=== PATIENT | female | born 1985 | race Caucasian/White ===

== ENCOUNTER → 2017-01-24 | Outpatient (CLI) | payer OTHER ==
[~2017-01-24] MED LIST: BCPILLS PO; NPR500 PO
== END | disposition home or self-care (01) ==
LOC: C.PAPS 14:21
PROVIDERS: ATTEND Physician Assistant
DX: Z12.4 Encounter for screening for malignant neoplasm of cervix (principal); R87.610 Atypical squamous cells of undetermined significance on cytologic smear of cervix (ASC-US)

== ENCOUNTER 2018-01-23 15:44 | Outpatient (CLI) | payer OTHER ==
[~2018-01-23] VITALS: Ht 170.2 cm; Wt 90.5 kg
[2018-01-23 17:01] LABS: HEMATOCRIT 35.2 % (37-47); HEMOGLOBIN 12.3 g/dL (12.0-16.0); MEAN CELL VOLUME 88.7 fL (80-100); MEAN CORPUSCULAR HGB CONC 34.9 g/dl (32-36); MEAN PLATELET VOLUME 10.4 fL (7.4-10.4); PLATELET COUNT 199 K/uL (130-400); RED CELL DISTRIBUTION WIDTH CV 12.7 % (11.5-14.5); RED CELL DISTRIBUTION WIDTH SD 40.7 fL (36.4-46.3); WHITE BLOOD COUNT 8.97 K/uL (4.8-10.8)
[2018-01-23 17:22] LABS: ALT/SGPT 17 U/L (12-78); AST/SGOT 17 U/L (15-37)
[2018-01-23 18:02] VITALS: Ht 170.2 cm; Wt 90.5 kg
[2018-01-23] MEDS ORDERED: PREN-83 ×2 (18:26)
[2018-01-23] MEDS ORDERED: DOXY25TA8 ×2 (18:26)
[2018-01-23] MEDS ORDERED: PYRI100T4 PO ×2 (18:26)
[2018-01-23] MEDS ORDERED: CLR10 PO ×2 (18:26)
--- NOTE | 2018-01-23 19:28 | Progress Note ---
Progress Note Date of Service Jan 23, 2018. Progress Note Outpatient note 32 F P0000 at 40.2 weeks seen in L&D for elevated BP in office today. BP 120/ 87 urine dip negative and labs all normal. Will discharge home. Induction of labor next week. T Cat 1.
== END 2018-01-23 17:55 | disposition home or self-care (01) ==
LOC: C.LD 15:44 → C.OPB 15:44
PROVIDERS: ATTEND Obstetrics & Gynecology
DX: O99.89 Other specified diseases and conditions complicating pregnancy, childbirth and the puerperium (principal); R03.0 Elevated blood-pressure reading, without diagnosis of hypertension; Z3A.40 40 weeks gestation of pregnancy

== ENCOUNTER 2018-01-25 02:38 | Inpatient (IN) | payer OTHER ==
[~2018-01-25] VITALS: Ht 170.2 cm; Wt 87.3 kg
[~2018-01-25 02:38] MED LIST changes: +CLR10 PO; +DOXY25TA8; +PREN-83; +PYRI100T4 PO
[2018-01-25] MEDS ORDERED: FAMO20TA11 PO ×2 (03:04)
[2018-01-25 03:05] VITALS: Ht 170.2 cm; Wt 87.3 kg
[2018-01-25] MEDS ORDERED: LACTATED RINGER'S 1000ML 1,000 ML IV SCH (03:09)
[2018-01-25] MEDS ORDERED: VANCOMYCIN CONSULT ACTIVE PRN (03:15)
[2018-01-25] MEDS ORDERED: VANCOMYCIN IV 1,000 MG in SODIUM CHLORIDE 0.9% 250ML 250 ML IV ONE (03:15)
[2018-01-25] MEDS ORDERED: VANCOMYCIN IV 1,000 MG in SODIUM CHLORIDE 0.9% 250ML 250 ML IV PRN (03:30)
[2018-01-25 04:02] LABS: HEMATOCRIT 33.9 % (37-47); HEMOGLOBIN 12.1 g/dL (12.0-16.0); MEAN CELL VOLUME 89.4 fL (80-100); MEAN CORPUSCULAR HEMOGLOBIN 31.9 pg (25-34); MEAN CORPUSCULAR HGB CONC 35.7 g/dl (32-36); MEAN PLATELET VOLUME 10.6 fL (7.4-10.4); PLATELET COUNT 197 K/uL (130-400); RED CELL DISTRIBUTION WIDTH CV 12.7 % (11.5-14.5); RED CELL DISTRIBUTION WIDTH SD 40.9 fL (36.4-46.3); WHITE BLOOD COUNT 8.43 K/uL (4.8-10.8)
[2018-01-25] MEDS ORDERED: CEFAZOLIN IV 2,000 MG in DEXTROSE 5% 50ML 50 ML IV ONE (04:15)
[2018-01-25 04:25] LABS: ALBUMIN 2.4 gm/dl (3.4-5.0); CALCIUM 8.5 mg/dl (8.5-10.1); CREATININE 0.76 mg/dl (0.60-1.20); POTASSIUM 3.3 mmol/L (3.5-5.1)
[2018-01-25 04:27] LABS: TOTAL PROTEIN 6.1 gm/dl (6.4-8.2)
[2018-01-25] MEDS ORDERED: CEFAZOLIN IV 2,000 MG in SYRINGE 0 ML IV SCH (04:30)
[2018-01-25] MEDS ORDERED: OXYTOCIN 30 UNITS/500ML NSS IV PRN ×2 (09:00→20:45)
[2018-01-25] MEDS ORDERED: LACTATED RINGER'S 1000ML 500 ML IV PRN ×2 (09:15→14:52)
[2018-01-25] MEDS ORDERED: CEFAZOLIN IV 1,000 MG in SYRINGE 0 ML IV PRN (10:00)
[2018-01-25] MEDS ORDERED: BUPIVACAINE 0.25% 30 ML VIAL ONE (14:03)
[2018-01-25] MEDS ORDERED: EpHEDrine SULFATE INJ 50 MG/ML AMP ONE (14:03)
[2018-01-25] MEDS ORDERED: FENTANYL 2MCG/ML ROPIV 1.25MG/ML 100ML BAG EPI ONE (14:04)
[2018-01-25] MEDS ORDERED: FENTANYL CITRATE INJ 50 MCG/1 ML 2 ML VIAL ONE (14:04)
[2018-01-25] MEDS ORDERED: NALOXONE HCL INJ 1 MG in SODIUM CHLORIDE 0.9% 1000ML 1,000 ML IV PRN (14:52)
[2018-01-25] MEDS ORDERED: FENTANYL 2MCG/ML ROPIV 1.25MG/ML 100ML BAG EPI PRN (15:00)
[2018-01-25] MEDS ORDERED: ONDANSETRON INJ 2 MG/ML 2 ML VIAL IV PRN (15:00)
[2018-01-25] MEDS ORDERED: NALOXONE HCL 0.4 MG/1 ML VIAL/CARP IV PRN (15:00)
[2018-01-25] MEDS ORDERED: DiphenhydrAMINE HCL 50 MG/ML VIAL IV PRN (15:00)
[2018-01-25] MEDS ORDERED: EpHEDrine SULFATE INJ 50 MG/ML AMP IV PRN (15:00)
[2018-01-25] MEDS ORDERED: NALBUPHINE HCL INJ 10 MG/ML AMP IV PRN (15:00)
--- NOTE | 2018-01-25 19:37 | HISTORY & PHYSICAL EXAMINATION ---
DATE OF ADMISSION: 01/25/2018 HISTORY OF PRESENT ILLNESS: The patient is a 32-year-old G1, P0, due date 01/21/2018, making her 40 weeks and 4 days on 01/25/2018. The patient presented to labor and delivery with term premature rupture of membranes at 1:00 a.m. on 01/25/2018. On arrival to labor and delivery, she was grossly ruptured. heart was category 1. Pelvic exam showed she was 1 cm, 70% and -1. The patient was, therefore, admitted. COURSE: Has been unremarkable. LABORATORY DATA: Blood type is O positive, antibody negative, rubella immune, GBS negative. PAST MEDICAL HISTORY: Seasonal allergies. PAST SURGICAL HISTORY: The patient has had throat surgery as well as dental surgery. FAMILY HISTORY: Noncontributory. SOCIAL HISTORY: The patient denies tobacco, drug or alcohol use. ALLERGIES: THE PATIENT IS ALLERGIC TO AMOXICILLIN AND PENICILLIN G. PHYSICAL EXAMINATION: GENERAL: Well-developed, well-nourished white female in no acute distress. HEART: S1, S2, regular rhythm and rate. LUNGS: Clear to auscultation bilaterally. ABDOMEN: Gravid. EXTREMITIES: No cyanosis, clubbing or edema. PELVIC: 1 cm, 70% and -1 station. ASSESSMENT AND PLAN: A 32-year-old G1, P0, at 40 and 4, term premature rupture of membranes. The patient is, therefore, being admitted. The patient is positive group B strep. She is, therefore, being given antibiotic prophylaxis. THE PATIENT HAS ALLERGY TO PENICILLIN, GETS A RASH. We discussed the use of Ancef. We discussed 4-10% cross reactivity. The patient has agreed to Ancef.
[2018-01-25] MEDS ORDERED: DIPHTHERIA/TETANUS/PERTUSSIS 0.5 ML SYR/VIAL IM. ONE (20:45)
[2018-01-25] MEDS ORDERED: LANOLIN OINT EXT PRN (20:45)
[2018-01-25] MEDS ORDERED: BENZOCAINE 20% AER SPR 82.5 GM CAN EXT PRN (20:45)
[2018-01-25] MEDS ORDERED: SUPERCREAM 0.870 % 15GM JAR EXT PRN (20:45)
[2018-01-25] MEDS ORDERED: OXYCODONE/ACETAMINOPHEN 5-325 TAB PO PRN (20:45)
[2018-01-25] MEDS ORDERED: ACETAMINOPHEN/CODEINE 300/30MG TAB PO PRN ×2 (20:45)
[2018-01-25] MEDS ORDERED: MISOPROSTOL 200 MCG TAB PR ONE (20:52)
--- NOTE | 2018-01-25 21:01 | DELIVERY SUMMARY ---
DATE OF OPERATION: 01/25/2018 The patient delivered a live infant female in left occiput anterior presentation. There was no nuchal cord. Infant was delivered and cord clamped after 1 minute. Cord blood, cord gas and cord collection was performed as per the patient's request. The 's weight is pending. Apgars 8 and 9. Placenta spontaneously delivered. Inspection of the placenta shows 3-vessel cord, grossly normal placenta. Inspection of the perineum showed a second-degree midline laceration which was repaired with 2-0 Vicryl in layers. Post-repair exam showed good sphincter tone, no sutures were palpated in the rectum. ESTIMATED BLOOD LOSS: 500 mL Baby and mother are doing well in recovery. All instruments were removed from the vagina including laps, sponges and needles and accounted for x2. I attest to the content of the Intraoperative Record and any orders documented therein. Any exception s are noted below.
--- NOTE | 2018-01-25 22:07 | Anesthesia Procedure Note ---
Anesthesia Epidural Removal Nt Date & Time Jan 25, 2018 at 22:07 Vital Signs Pain Intensity: 1.0 Notes Mental Status: alert / awake / arousable, participated in evaluation Nausea / Vomiting: adequately controlled Pain: adequately controlled Airway Patency, RR, SpO2: stable & adequate BP & HR: stable & adequate Hydration State: stable & adequate Neuraxial Anesthesia: was administered Anesthetic Complications: no major complications apparent, pt satisfied with anesthetic care Epidural: removed without complications, with tip intact
[2018-01-25] MEDS: IBUPROFEN 600 MG TAB PO PRN (23:06)
[2018-01-26] VITALS (9 sets, daily range): BP systolic 127–159; BP diastolic 76–94; PULSE 61–69; TEMP 36.5–37.1; O2SAT 95–96
[2018-01-26] MEDS: IBUPROFEN 600 MG TAB PO PRN ×4 (02:59→19:15)
[2018-01-26] MEDS: ACETAMINOPHEN 325 MG TAB PO PRN ×4 (06:15→23:42)
[2018-01-26 06:28] LABS: HEMATOCRIT 31.5 % (37-47); HEMOGLOBIN 11.2 g/dL (12.0-16.0)
[2018-01-26] MEDS: PRENATAL VITAMIN TAB PO SCH (08:21)
[2018-01-26] MEDS: DOCUSATE SODIUM 100 MG CAP PO SCH ×2 (08:22→20:10)
[2018-01-26] MEDS: FERROUS SULFATE 325 MG TAB PO SCH (08:22)
--- NOTE | 2018-01-26 12:45 | OB/GYN Progress Note ---
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 Subjective conversation w/ patient, physical exam Voiding: no voiding problems Passing Gas: Yes Lochia: Small Feeding Type: Breast Feeding Objective Vital Signs Date Time Temp Pulse Resp B/P (MAP) Pulse Ox O2 Delivery O2 Flow Rate FiO2 01/26/18 11:50 36.6 65 18 152/92 (112) 95 Room Air 01/26/18 08:15 37.0 65 18 142/92 (109) 96 Room Air 01/26/18 08:15 96 Room Air 01/26/18 04:00 37.1 66 20 136/84 01/26/18 00:45 37.1 68 18 132/83 01/26/18 00:45 Room Air Physical Exam General Appearance: WELL-APPEARING, WD/WN, NO APPARENT DISTRESS Abdomen: non tender, soft Fundus: Firm Extremities: non-tender, normal inspection, no pedal edema, no calf tenderness Laboratory Results Last 24 Hours Test 01/26/18 06:12 Hemoglobin 11.2 g/dL Hematocrit 31.5 % Assessment and Plan Post- Day Number: 1 Continue Routine Care: Will watch BP tent d/c in AM
[2018-01-26] MEDS ORDERED: NURSING VERBAL MED ORDER ONE (14:30)
[2018-01-26] MEDS: LABETALOL HCL 100 MG TAB PO SCH ×2 (15:19→20:10)
[2018-01-26] MEDS ORDERED: BISACODYL 5 MG TABEC PO SCH (20:00)
[2018-01-27] MEDS: IBUPROFEN 600 MG TAB PO PRN (03:02)
[2018-01-27 03:03] VITALS: BP 133/81; PULSE 55
[2018-01-27] MEDS: ACETAMINOPHEN 325 MG TAB PO PRN (05:17)
[2018-01-27] MEDS ORDERED: BISACODYL 10 MG SUPP PR PRN (07:00)
[2018-01-27] MEDS ORDERED: LBT100 PO ×2 (07:43)
[2018-01-27] MEDS ORDERED: MTR600X PO ×2 (07:43)
--- NOTE | 2018-01-27 07:45 | Discharge Instructions ---
Discharge Instructions Date of Service Jan 27, 2018. Admission Reason for Admission: LABOR Discharge Discharge Diagnosis / Problem: Vaginal Delviery, Elevated BP's Discharge Goals Goal(s): Routine recovery after delivery Medications Continue Dispensed Medications: supercream, dermaplast, tucks, lansinoh Activity Recommendations Activity Limitations: per Instructions/Follow-up section . Instructions / Follow-Up Instructions / Follow-Up ACTIVITY RECOMMENDATIONS: * Gradual return to full activity over the next 2-3 weeks. * No lifting - nothing heavier than baby over the next 2-3 weeks. * Do not engage in vigorous exercise, sexual activity or sports until cleared by your physician. * Do not drive or operate any motorized equipment until cleared by your physician. * You may shower/bathe daily. BREAST CARE: If you are not breast feeding: * Wear a supportive bra 24 hours a day for one to two weeks. * Avoid stimulating your breasts and nipples as much as possible during the first few weeks after delivery. * When taking a shower, have the warm water hit your back, not breasts. * When your breasts feel full, apply ice packs. Usually three to four times a day helps ease the discomfort. * Take a mild pain medication (Tylenol/Motrin) when you are uncomfortable. If breast feeding: * Use breast milk to lubricate nipples. Lansinoh cream may be used for sore nipples. You do not need to remove cream prior to breast feeding. If using a different brand of cream, check the label for directions regarding removal of cream prior to nursing. * Wear a supportive bra. * If having problems with breasts or breast feeding, call a reporting consultant or your health care provider. EPISIOTOMY CARE: After delivery, if you have an episiotomy (stitches), the following steps will ease discomfort and aid healing. * For the first 24 hours after delivery, place ice packs next to your episiotomy to help reduce swelling. * After the first 24 hour-period, sitz baths, either portable or in the tub, are suggested. A shower with a shower arm sprayed over the episiotomy may be comforting. * Franny care should be done after each voiding and bowel movement. Squirt warm water from a plastic bottle over the perineum (region of the body between the anus and urinary opening) and pat dry. * Use Dermoplast to ease discomfort. Shake container. Russell directly over the episiotomy. * Place a Tucks on a clean sanitary pad next to your episiotomy. OVER THE COUNTER MEDICATION: * For discomfort or pain, you may use Acetaminophen (Tylenol), Ibuprofen (Advil ), or Naproxen (Aleve) following the package directions. * For constipation you may use Colace following the package directions. SPECIAL CARE INSTRUCTIONS: When you are discharged from the hospital, it is important for you to follow the instructions listed below: * During the first week at home, you should be able to care for yourself and your baby. In addition, the usual light household activities are encouraged. * Limit your activities to the way you feel. Do not try to clean the house or move furniture. Be sensible. * If you actively engage in sports and have done so up until the time of your delivery, you may resume these activities as soon as you feel able. This may take up to one month or even longer. Use good judgment. * Continue to take your vitamins for at least six weeks after the of your baby. * Your diet need not be limited unless you were on a special diet before your delivery. Breast-feeding mothers need around 2500 calories per day and at least 64-80 ounces of fluid per day (8 to 10 glasses). * You should eat foods from the four major food groups. Crash diets or fad diets are to be avoided. Eating lean meats, fresh fruits and vegetables, low-fat dairy products, high fiber foods and a regular exercise program, will help you get back to your pre- weight without putting your health at risk. * Constipation is sometimes a problem after delivery. Take a mild laxative as needed. If breast feeding, Milk of Magnesia is acceptable to use. You may use a suppository or Fleets enema if no episiotomy. * A daily shower or tub bath is suggested. Be sure to thoroughly and gently dry the perineum. * A bloody vaginal discharge will usually continue until around four weeks post . A small amount of bleeding may continue for as long as six weeks. Vaginal discharge changes from the bright red bleeding after delivery to pink then brownish and finally yellowish-pink before becoming white and disappearing. * Bleeding may increase with activity. Your first period may come in 4-8 weeks. If you are breast feeding, your period may be delayed even longer. * [place] (sex) can begin whenever both you and your partner feel comfortable and do not have any form of genital infection. It is recommended that you wait until after your return appointment and discuss with your physician. If you have questions, please talk to your health care practitioner. A condom should be used to prevent infection and . * Foreplay, gentle intercourse and lubrication is very important the first several times to prevent pain. A water-based lubricant such as K-Y jelly or Astroglide may be used. * Tampons may be used six weeks after delivery. * Douching should be avoided for 6 weeks after delivery. * If you have RH negative blood and your baby is RH positive, you will receive RHOGAM by injection prior to discharge. The nurse will give you a card to keep with you that has the date and place that you received RHOGAM after delivery. * During your care, you had a Rubella screen done to check for the presence of rubella antibodies in your blood. If your test was negative, you will receive a Rubella vaccine prior to discharge. This vaccine may cause a fever, soreness at the injection site and flu-like symptoms. If these symptoms persist, notify your health care practitioner. is not advised for three months after a Rubella vaccine. There is a higher chance of having a baby with defects if conceived within three months of getting the vaccine. * If you were discharged 24 hours from delivery or before 48 hours: Visiting nurses will come to your home 48 hours after discharge to assess you and your baby. The visiting nurse will meet with you while you are in the hospital to arrange a time and get directions to your home. * Verbalizes understanding of car seat law as reviewed with patient nursing. * Car Seat hand-out given and reviewed with patient by nursing. * Shaken baby information reviewed with patient by nursing. Call you doctor if: * Heavy bleeding (saturating several pads an hour) or passing clots the size of your fist. * A fever >101 degrees F (38.3 degrees C) on two occasions four hours apart and/or chills. * Unusual pain in the pelvic or vaginal areas. * "Baby Blues" lasting longer than two weeks. If you have any questions or concerns, call your health care practitioner at . FOLLOW-UP VISIT: * Please call the office at to schedule a 1 week examination for a blood pressure check. It is important you keep this appointment. * It is important for you to make arrangements for either yearly or twice yearly check-ups thereafter. Current Hospital Diet Patient's current hospital diet: Regular OB Diet Discharge Diet Recommended Diet: Regular OB Diet Pending Studies Studies pending at discharge: no Medical Emergencies . Who to Call and When: Medical Emergencies: If at any time you feel your situation is an emergency, please call 911 immediately. . Non-Emergent Contact Non-Emergency issues call your: Primary Care Provider, Channel Director . . "Provider Documentation" section prepared by Isiah Lee. .
[2018-01-27] MEDS: LABETALOL HCL 100 MG TAB PO SCH (07:47)
[2018-01-27] MEDS: DOCUSATE SODIUM 100 MG CAP PO SCH (07:47)
[2018-01-27] MEDS: FERROUS SULFATE 325 MG TAB PO SCH (07:47)
[2018-01-27] MEDS: PRENATAL VITAMIN TAB PO SCH (07:47)
--- NOTE | 2018-01-27 07:49 | OB/GYN Progress Note ---
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 Subjective conversation w/ patient, physical exam Ambulation: ambulating normally Voiding: no voiding problems Passing Gas: Yes Diet Tolerance: Regular Diet Lochia: Small Feeding Type: Breast Feeding Pain: 12/27 Notes: Doing well, no concerns. Pain well controlled. Tolerating regular diet. Ambulating without difficulty. Denies RANKIN, vision changes or abdominal pain. Would like to go home today. Objective Vital Signs Date Time Temp Pulse Resp B/P (MAP) Pulse Ox O2 Delivery O2 Flow Rate FiO2 01/27/18 03:03 55 20 133/81 (98) 01/26/18 23:30 Room Air 01/26/18 23:30 36.9 69 18 137/76 (96) 01/26/18 22:49 36.5 61 20 159/94 (115) 96 Room Air 01/26/18 20:08 36.6 65 16 148/88 (108) Room Air 01/26/18 16:00 Room Air 01/26/18 16:00 36.9 69 18 127/79 (95) Room Air 01/26/18 15:20 65 136/85 (102) 01/26/18 11:50 36.6 65 18 152/92 (112) 95 Room Air 01/26/18 08:15 37.0 65 18 142/92 (109) 96 Room Air 01/26/18 08:15 96 Room Air Physical Exam General Appearance: WELL-APPEARING Respiratory/Chest: chest non-tender, lungs clear Cardiovascular: regular rate, rhythm Abdomen: normal bowel sounds, soft Fundus: Firm Extremities: normal range of motion, non-tender, no calf tenderness Laboratory Results Last 24 Hours Test 01/27/18 04:44 Assessment and Plan Post- Day Number: 2 Continue Routine Care: -D/C home today -Continue labetalol 100 mg BID, BP's controlled. -F/U in 1 week for BP check.
[2018-01-27 07:51] VITALS: BP 141/90; PULSE 67; TEMP 36.9
[2018-01-27 09:07] LABS: HEMATOCRIT 33.1 % (37-47); HEMOGLOBIN 11.5 g/dL (12.0-16.0); MEAN CELL VOLUME 89.7 fL (80-100); MEAN CORPUSCULAR HEMOGLOBIN 31.2 pg (25-34); MEAN CORPUSCULAR HGB CONC 34.7 g/dl (32-36); MEAN PLATELET VOLUME 10.4 fL (7.4-10.4); PLATELET COUNT 178 K/uL (130-400); RED CELL DISTRIBUTION WIDTH SD 42.2 fL (36.4-46.3); WHITE BLOOD COUNT 10.54 K/uL (4.8-10.8)
[2018-01-27 12:22] VITALS: BP 134/79; PULSE 71; TEMP 37
[2018-01-27 12:45] VITALS: BP_DIAS 79; PULSE 71; TEMP 37
== END 2018-01-27 13:00 | disposition home or self-care (01) | DRG 775 ==
LOC: C.LD 02:38 → C.OPB 02:38 → C.LD 02:53 → C.OPB 02:53 → C.OBG 23:57
PROVIDERS: ADMIT Obstetrics & Gynecology; ATTEND Obstetrics & Gynecology
PROC: 10E0XZZ Delivery of Products of Conception, External Approach (ICD-10-PCS; principal; 2018-01-25)
PROC: 0KQM0ZZ Repair Perineum Muscle, Open Approach (ICD-10-PCS; principal; 2018-01-25)
DX: O70.1 Second degree perineal laceration during delivery (principal); O99.824 Streptococcus B carrier state complicating childbirth; O48.0 Post-term pregnancy; Z3A.40 40 weeks gestation of pregnancy; Z88.0 Allergy status to penicillin; Z37.0 Single live birth; Z88.1 Allergy status to other antibiotic agents